=== PATIENT | female | born 1965 | race Caucasian/White ===

== ENCOUNTER 2017-10-31 06:20 | Day surgery (SDC) | payer OTHER | END 2017-10-31 09:20 | disposition home or self-care (01) | LOC: AMB-ENDOS 06:20 | DX: K64.2 Third degree hemorrhoids (principal); Z12.11 Encounter for screening for malignant neoplasm of colon ==

== ENCOUNTER 2022-11-11 16:53 | Outpatient (CLI) | payer OTHER | END 2022-11-11 16:54 | disposition home or self-care (01) | LOC: LAB 16:53 → RAD 16:53 → LAB 16:54 | PROVIDERS: ATTEND Obstetrics & Gynecology Maternal & Fetal Medicine | DX: T14.90XA Injury, unspecified, initial encounter (principal); W19.XXXA Unspecified fall, initial encounter ==